=== PATIENT | female | born 2005 | race Caucasian/White ===

== ENCOUNTER 2025-01-04 06:23 | Inpatient (IN) ==
[2025-01-04] MEDS: LR 1,000 ML IV 1,000 ML IV ONE (06:45)
[2025-01-04] MEDS: ANCEF VIAL 1 GRAM IVP ONE (07:00)
[2025-01-04] MEDS ORDERED: D5 1/2 NS 1,000 ML 1,000 ML IV SCH (07:00)
[2025-01-04] MEDS: LR IV PRN (07:00)
[2025-01-04] MEDS: MARCAINE SPINAL ONE (07:02)
[2025-01-04] MEDS: ZOFRAN INJ 4 MG VIAL ONE (07:02)
[2025-01-04] MEDS: PEPCID 20 MG VIAL ONE (07:02)
[2025-01-04] MEDS: REGLAN INJ 10 MG VIAL ONE (07:02)
[2025-01-04] MEDS: NEO-SYNEPHRINE INJ ONE (07:03)
[2025-01-04] MEDS: XYLOCAINE 2 % (PLAIN) ONE (07:03)
[2025-01-04] MEDS: ZOFRAN INJ 4 MG VIAL IVP PRN (07:14)
[2025-01-04] MEDS: PEPCID 20 MG VIAL IVP PRN (07:16)
[2025-01-04] MEDS: REGLAN INJ 10 MG VIAL IVP PRN (07:18)
[2025-01-04] MEDS: TORADOL 30 MG VIAL ONE (07:21)
[2025-01-04] MEDS: DILAUDID INJ ONE (07:21)
[2025-01-04] MEDS: ANCEF VIAL 1 GRAM IV PRN (07:21)
[2025-01-04] MEDS: ANCEF VIAL 1 GRAM ONE (07:21)
[2025-01-04] MEDS: NS 100 ML IV 100 ML ONE (07:21)
[2025-01-04] MEDS: DILAUDID INJ IVP PRN (07:38)
[2025-01-04] MEDS: ROBINUL ONE (07:44)
[2025-01-04] MEDS: OFIRMEV IV 1000 MG VIAL 1,000 MG/100 ML VIAL IV ONE (07:47)
[2025-01-04] MEDS: ROBINUL IVP PRN (07:48)
[2025-01-04] MEDS: OFIRMEV IV 1000 MG VIAL 1,000 MG/100 ML VIAL IV PRN (07:50)
[2025-01-04] MEDS: EPHEDRINE SULFATE INJ ONE (08:01)
[2025-01-04] MEDS: EPHEDRINE SULFATE INJ IVP PRN (08:02)
[2025-01-04] MEDS: PITOCIN ONE ×2 (08:04→08:18)
[2025-01-04] MEDS: DECADRON INJ IVP PRN (08:12)
[2025-01-04] MEDS: PROPOFOL IVP PRN (08:20)
[2025-01-04] MEDS: PITOCIN IVP PRN (08:27)
[2025-01-04] MEDS: BENADRYL INJ 50 MG VIAL ONE (08:30)
[2025-01-04] MEDS: DIPRIVAN VIAL 20 ML ONE ×3 (08:42→08:56)
[2025-01-04] MEDS: BENADRYL INJ 50 MG VIAL IVP PRN (08:45)
[2025-01-04] MEDS: BREVIBLOC ONE (08:50)
[2025-01-04] MEDS ORDERED: DILAUDID INJ IVP PRN (08:53)
[2025-01-04] MEDS ORDERED: ZOFRAN INJ 4 MG VIAL IVP PRN ×2 (08:53→10:14)
[2025-01-04] MEDS: BREVIBLOC IVP PRN (09:03)
[2025-01-04] MEDS: TORADOL 30 MG VIAL IVP PRN (09:05)
[2025-01-04] MEDS: TORADOL 30 MG VIAL IM PRN (09:08)
[2025-01-04] MEDS: NEO-SYNEPHRINE INJ IVP PRN (09:08)
[2025-01-04] MEDS: NARCAN INJ ONE (09:26)
[2025-01-04] MEDS ORDERED: BENADRYL INJ 50 MG VIAL IVP PRN (10:14)
[2025-01-04] MEDS ORDERED: NARCAN INJ IVP PRN (10:14)
[2025-01-04] MEDS ORDERED: REGLAN INJ 10 MG VIAL IVP PRN (10:14)
[2025-01-04] MEDS: OXYTOCIN 20 UNIT/1,000 ML-NS 20 UNIT/1,000 ML PLAST..BAG IV SCH (11:14)
[2025-01-04] MEDS: PERCOCET TAB 5/325 MG PO PRN (14:19)
[2025-01-04] MEDS ORDERED: ADACEL or BOOSTRIX TDaP VACCINE IM ONE (15:20)
[2025-01-04] MEDS: ADACEL or BOOSTRIX TDaP VACCINE IM ONE (15:26)
[2025-01-05] MEDS: MYLICON TAB 80 MG CHEW PO PRN (00:26)
[2025-01-05] MEDS: TORADOL 30 MG VIAL IVP PRN (00:29)
[2025-01-05 04:57] LABS: HEMATOCRIT 24.9 % (36.0-47.0)
[2025-01-05 05:06] LABS: HEMOGLOBIN 8.3 g/dL (12.0-16.0)
[2025-01-05] MEDS: PRENATAL PLUS PO SCH (08:02)
[2025-01-05] MEDS: VALTREX PO SCH (08:03)
[2025-01-05] MEDS: COLACE CAP 100 MG PO SCH (08:48)
[2025-01-05] MEDS ORDERED: PRENATAL PLUS PO SCH (09:00)
[2025-01-05] MEDS: PERCOCET TAB 5/325 MG PO PRN (10:30)
[2025-01-05] MEDS: BACTROBAN TOPICAL OINT TOP SCH (13:17)
[2025-01-05] MEDS: BENADRYL CAP/TAB 25 MG PO ONE (16:08)
[2025-01-05] MEDS: FERROUS GLUCONATE PO SCH (16:08)
[2025-01-05] MEDS: MOTRIN TAB 800 MG PO PRN (17:01)
[2025-01-06 08:38] VITALS: BP 139/71; PULSE 104; TEMP 98.2; O2SAT 99
[2025-01-06 10:52] VITALS: RESP 20
== END 2025-01-06 12:05 | disposition home or self-care (01) | DRG 787 ==
LOC: LD 06:23 → MED/SURG 11:07
PROVIDERS: ADMIT Specialist; ATTEND Specialist
DX: O32.1XX1 Maternal care for breech presentation, fetus 1; O31.8X31 Other complications specific to multiple gestation, third trimester, fetus 1; Z3A.37 37 weeks gestation of pregnancy; O32.2XX2 Maternal care for transverse and oblique lie, fetus 2; O30.043 Twin pregnancy, dichorionic/diamniotic, third trimester; Z37.2 Twins, both liveborn

== ENCOUNTER 2025-11-17 06:23 | Inpatient (IN) ==
[2025-11-17] MEDS: LR 1,000 ML IV 1,000 ML IV SCH (06:55)
[2025-11-17] MEDS: NS 100 ML IV 100 ML ONE (06:56)
[2025-11-17] MEDS: ANCEF VIAL 1 GRAM IVP ONE (06:56)
[2025-11-17] MEDS: ZOFRAN INJ 4 MG VIAL ONE (07:02)
[2025-11-17] MEDS: DECADRON INJ ONE (07:02)
[2025-11-17] MEDS: REGLAN INJ 10 MG VIAL ONE (07:02)
[2025-11-17] MEDS: PRECEDEX INJ VIAL ONE (07:03)
[2025-11-17] MEDS: EPHEDRINE SULFATE INJ ONE (07:03)
[2025-11-17] MEDS: OFIRMEV IV 1000 MG VIAL 1,000 MG/100 ML VIAL IV ONE (07:03)
[2025-11-17] MEDS: MARCAINE SPINAL ONE (07:04)
[2025-11-17] MEDS: PITOCIN ONE (07:04)
[2025-11-17] MEDS: XYLOCAINE 2 % (PLAIN) ONE (07:04)
[2025-11-17] MEDS: LR 1,000 ML IV 1,000 ML IV PRN (07:05)
[2025-11-17] MEDS: PEPCID 20 MG VIAL ONE (07:11)
[2025-11-17] MEDS: ZOFRAN INJ 4 MG VIAL IVP PRN (07:20)
[2025-11-17] MEDS: REGLAN INJ 10 MG VIAL IVP PRN (07:22)
[2025-11-17] MEDS: PEPCID 20 MG VIAL IVP PRN (07:24)
[2025-11-17] MEDS: ANCEF VIAL 1 GRAM IV PRN (07:27)
[2025-11-17] MEDS: LR 1,000 ML IV 1,000 ML IV ONE (07:32)
[2025-11-17] MEDS: PRECEDEX INJ VIAL IVP PRN ×2 (07:48→08:49)
[2025-11-17] MEDS: NEO-SYNEPHRINE INJ ONE (07:56)
[2025-11-17] MEDS: DECADRON INJ IVP PRN (08:00)
[2025-11-17] MEDS: EPHEDRINE SULFATE INJ IVP PRN (08:05)
[2025-11-17] MEDS: NEO-SYNEPHRINE INJ IVP PRN (08:05)
[2025-11-17] MEDS: OFIRMEV IV 1000 MG VIAL 1,000 MG/100 ML VIAL IV PRN (08:10)
[2025-11-17] MEDS: TORADOL 30 MG VIAL ONE (08:24)
[2025-11-17] MEDS ORDERED: DILAUDID INJ IVP PRN ×2 (08:37→09:52)
[2025-11-17] MEDS ORDERED: BENADRYL INJ 50 MG VIAL IVP PRN ×2 (08:37→09:52)
[2025-11-17] MEDS ORDERED: ZOFRAN INJ 4 MG VIAL IVP PRN ×2 (08:37→09:52)
[2025-11-17] MEDS: PHENERGAN INJ 25 MG IM PRN (08:41)
[2025-11-17] MEDS: PHENERGAN INJ 25 MG IM ONE (08:43)
[2025-11-17] MEDS: PITOCIN IVP PRN (08:47)
[2025-11-17] MEDS: NS 1,000 ML IV 100 ML IV PRN (08:47)
[2025-11-17] MEDS: TORADOL 30 MG VIAL IVP PRN (09:11)
[2025-11-17] MEDS ORDERED: REGLAN INJ 10 MG VIAL IVP PRN (09:52)
[2025-11-17] MEDS: OFIRMEV IV 1000 MG VIAL 1,000 MG/100 ML VIAL IV SCH (11:16)
[2025-11-17] MEDS: ADACEL or BOOSTRIX TDaP VACCINE IM ONE (11:16)
[2025-11-17] MEDS: OXYTOCIN 20 UNIT/1,000 ML-NS 20 UNIT/1,000 ML PLAST..BAG IV SCH (11:22)
[2025-11-17] MEDS: TORADOL 30 MG VIAL IVP SCH (12:25)
[2025-11-17] MEDS: PERCOCET TAB 5/325 MG PO PRN (15:34)
[2025-11-17] MEDS ORDERED: ADACEL or BOOSTRIX TDaP VACCINE IM ONE ×2 (17:49→17:54)
[2025-11-17] MEDS: NS 250 ML IV 250 ML IV ONE (18:00)
[2025-11-17] MEDS: MOTRIN TAB 800 MG PO PRN (20:03)
[2025-11-18] MEDS: MYLICON TAB 80 MG CHEW PO PRN (08:37)
[2025-11-18] MEDS: PRENATAL PLUS PO SCH (08:37)
[2025-11-18] MEDS: COLACE CAP 100 MG PO SCH (08:37)
[2025-11-18] MEDS: VALTREX PO SCH (08:39)
[2025-11-18] MEDS: BACTROBAN TOPICAL OINT TOP SCH (14:39)
[2025-11-19 00:05] VITALS: RESP 18
[2025-11-19 10:29] VITALS: BP 134/67; PULSE 76; TEMP 98; O2SAT 98
== END 2025-11-19 11:20 | disposition home or self-care (01) | DRG 788 ==
LOC: LD 06:23 → MED/SURG 10:10
PROVIDERS: ADMIT Specialist; ATTEND Specialist
DX: O34.211 Maternal care for low transverse scar from previous cesarean delivery; Z37.0 Single live birth; Z3A.38 38 weeks gestation of pregnancy; Z01.818 Encounter for other preprocedural examination; N85.8 Other specified noninflammatory disorders of uterus